=== PATIENT | female | born 1960 | race Caucasian/White ===

== ENCOUNTER 2017-06-07 15:43 | Observation (INO) | payer MEDICAID ==
[2017-06-07] MEDS ORDERED: oxyCODONE IR 5 MG TAB PO PRN (17:28)
[2017-06-07] MEDS ORDERED: ONDANSETRON DISINTEGRATING 4 MG TAB PO PRN (17:28)
[2017-06-07] MEDS ORDERED: PROMETHAZINE HCL 25 MG/ML INJ IVP PRN (17:28)
[2017-06-07] MEDS ORDERED: ACETAMINOPHEN 325 MG TAB PO PRN (17:28)
[2017-06-07] MEDS ORDERED: ONDANSETRON 4 MG/2 ML VIAL IVP PRN (17:28)
[2017-06-07] MEDS ORDERED: LORazepam 0.5 MG TAB PO PRN (17:28)
[2017-06-07] MEDS ORDERED: HYDROmorphone HCL/NS/PF 0.4 MG/2 ML SYR IVP PRN (17:28)
[2017-06-07] MEDS ORDERED: NS 1,000 ML IV SCH (17:30)
--- NOTE | 2017-06-07 18:35 | PDGENHP ---
History and Physical - Chief Complaint back pain - History of Present Illness 56 yo F with a PMH that includes RCC s/p nephrectomy and more recent metastatic breast cancer, widely metastatic to bone, presenting with BENNETT on CKD. Patient notes that she has generally felt poorly this week, she had recently started a new chemotherapy medicine after she had progression on the last round and thought that some of her feeling poorly was either due to the chemo or to the known tumor burden in her spine. She had a set of labs drawn that revealed her creatinine was much higher than her baseline on the and since then has had 2 saline infusions without improvement in her creatinine. An abd US was obtained showing mild to moderate hydronephrosis and due to this and her worsening renal function she was sent here as a direct admit. She has not had fever or chills, she has not noticed any change in her urine appearance or amount. She notes that her pain is generally well controlled on tylenol and she mainly has been struggling with mood and sleep issues. History Information - Allergies/Home Medication List Allergies/Adverse Reactions: Penicillins Allergy (Verified 09/01/14 15:21) Hives Sulfa (Sulfonamide Antibiotics) Allergy (Verified 09/01/14 15:21) Hives Home Medications: Clonazepam 06/05/13 [Last Taken Unknown] traZODONE 06/05/13 [Last Taken Unknown] I have personally reviewed and updated: family history, medical history, social history, surgical history - Past Medical History cancer (renal cell carcinoma, bilateral breast cancer--metastatic at diagnosis) , psychiatric history (anxiety/depression) - Surgical History Additional surgical history: nephrectomy. breast biopsy - Family History Positive for: non-pertinent - Social History Smoking Status: Former smoker Alcohol Use: Rarely Drug Use: None Review of Systems Review of Systems: ROS: 10pt was reviewed & negative except for what was stated in HPI & below Physical Exam Physical Exam: Temp Pulse Resp BP Pulse Ox 36.8 C 80 16 152/74 H 94 06/07/17 17:35 06/07/17 17:35 06/07/17 17:35 06/07/17 17:35 06/07/17 17:35 Constitutional: no apparent distress, chronically ill appearing Eyes: PERRL, anicteric sclera Ears, Nose, Mouth, Throat: moist mucous membranes, hearing normal Cardiovascular: regular rate and rhythym, no murmur, rub, or gallop, No edema Respiratory: no respiratory distress, no rales or rhonchi, clear to auscultation Gastrointestinal: normoactive bowel sounds, soft, non-tender abdomen Genitourinary: no bladder tenderness Skin: warm, normal color Musculoskeletal: full muscle strength Neurologic: AAOx3, No weakness, No numbness Psychiatric: interacting appropriately, not anxious, not encephalopathic Lab Data & Imaging Review Urine Color PALE YELLOW 06/07/17 17:43 Urine Appearance CLEAR 06/07/17 17:43 Urine pH 5.0 (5.0-7.5) 06/07/17 17:43 Ur Specific [place] 1.003 (1.002-1.030) 06/07/17 17:43 Urine Protein NEGATIVE (NEGATIVE) 06/07/17 17:43 Urine Ketones NEGATIVE (NEGATIVE) 06/07/17 17:43 Urine Blood 1+ (NEGATIVE) H 06/07/17 17:43 Urine Nitrate NEGATIVE (NEGATIVE) 06/07/17 17:43 Urine Bilirubin NEGATIVE (NEGATIVE) 06/07/17 17:43 Urine Urobilinogen NEGATIVE EU (0.2-1.0) 06/07/17 17:43 Ur Leukocyte Esterase NEGATIVE (NEGATIVE) 06/07/17 17:43 Urine RBC 1-3 /hpf (0-3) 06/07/17 17:43 Urine WBC 3-5 /hpf (0-3) H 06/07/17 17:43 Ur Epithelial Cells TRACE /lpf (NONE-1+) 06/07/17 17:43 Ur Culture Indicated? NOT INDICATED (NI) 06/07/17 17:43 Urine Glucose NEGATIVE (NEGATIVE) 06/07/17 17:43 Assessment & Plan Assessment: BENNETT (acute kidney injury) (Acute) 56 yo F with metastatic breast cancer as well as hx of RCC s/p nephrectomy presenting with bennett on ckd # bennett on ckd: in the setting of mild to moderate hydronephrosis on US that is new from prior likely 2/2 compression from fibroid. Discussed with IR and plan for perc neph tube placement either today or in am and f/u with urology after that for internal ureteral stent. Patient declining having IV in overnight and already had 1L NS today so will push fluids but no IV fluids overnight. Once perc neph tube is placed, patient likely can dc in am with close f/u. # metastatic breast cancer: widely metastatic to bone and progressing despite chemotherapy. Significant involvement of right breast and will ask wound care to evaluate in am. Continue to f/u with oncology as per routine. # RCC: s/p nephrectomy as above # observation status, suspect she will require < 48 hours stay for eval/mgmt of above Patient new to my care. Old records reviewed and summarized as above. Care plan reviewed with IR physician including plans for perc neph likely in am.
[2017-06-07] MEDS ORDERED: traZODone 100 MG TAB PO PRN (18:56)
[2017-06-07] MEDS ORDERED: fentaNYL 100 MCG/2 ML INJ ONE ×2 (19:07→19:22)
[2017-06-07] MEDS ORDERED: MIDAZOLAM 2 MG/2 ML VIAL ONE (19:07)
--- NOTE | 2017-06-07 19:30 | POSTOPPROG ---
Post Op Note Date of Operation: 06/07/17 Surgeon: Suyapa Grewal Anesthesia: IV Sedation (fentanyl and versed) Pre-op Diagnosis: RT kidney hydronephrosis Post-op Diagnosis: same Indication: single kidney with rising CR Procedure: RT double J stent placement Findings: moderate hydronephrosis. No obstruction identified. Inf/Abcess present in the surg proc area at time of surgery?: No Depth: Superfical (Skin SQ) EBL: Minimal Complications: None Drains: Other (8fr 22cm double J ureteral stent)
[2017-06-07] MEDS ORDERED: IOPAMIDOL (ISOVUE-300) 100 ML BTL ONE (19:31)
[2017-06-07] MEDS ORDERED: MIRTAZAPINE 30 MG TAB PO SCH (21:00)
[2017-06-07] MEDS ORDERED: clonazePAM 0.5 MG TAB PO SCH (21:00)
[2017-06-07] MEDS ORDERED: traZODone 100 MG TAB PO SCH (21:00)
[2017-06-07] MEDS: CAPECITABINE 500 MG TAB PO SCH (21:40)
[2017-06-07] MEDS: CAPECITABINE PO SCH (21:40)
[2017-06-07] MEDS: HYDROCODONE/APAP 5/325 TAB PO PRN (21:47)
[2017-06-07] MEDS: HYOSCYAMINE SULFATE 0.125 MG TAB PO PRN (23:03)
[2017-06-08] MEDS: HYOSCYAMINE SULFATE 0.125 MG TAB PO PRN ×3 (03:41→14:07)
[2017-06-08] MEDS: HYDROCODONE/APAP 5/325 TAB PO PRN ×2 (03:41→12:26)
[2017-06-08 05:16] LABS: PLATELET COUNT 122 10^3/uL (150-400)
[2017-06-08 05:25] LABS: INR 1.3 (0.83-1.16); PROTIME(PATIENT) 16.2 SEC (12.0-15.0)
[2017-06-08] MEDS: CAPECITABINE 500 MG TAB PO SCH (09:18)
[2017-06-08] MEDS: CAPECITABINE PO SCH (09:18)
[2017-06-08 12:03] VITALS: BP 131/75; PULSE 81; RESP 17; TEMP 98.1; O2SAT 89
--- NOTE | 2017-06-08 15:42 | GDS ---
[f rep st] DISCHARGE SUMMARY DISCHARGE DIAGNOSES: 1. Unilateral kidney with obstruction, status post ureteral stent. 2. Renal cell carcinoma, status post nephrectomy. 3. Metastatic breast cancer. 4. Acute on chronic kidney disease. 5. Acute blood loss anemia. HISTORY: The patient is a 56-year-old female with metastatic breast cancer, who was found to have ac km on chronic renal failure. She had an outpatient ultrasound that showed moderate hydronephrosis o f her remaining kidney. She was admitted to the hospital and put in a ureteral stent. Post procedure, she did have a drop in her H and H and got 2 units of blood transfused. Her post t ransfusion check was quite elevated, which makes me suspect that there may have been a little bit of lab error in her initial H and H draw this morning. Regardless, she is chronically anemic due to her metastatic breast cancer and chemotherapy, so she will probably benefit from this blood. She did have some mild transient hematur ia, but I do not think she had a significant bleed. A CT scan of the abdomen and pelvis was performe d to rule out retroperitoneal bleed and this was negative. The patient was very insistent on being d ischarged today and did not wish to stay in the hospital any longer. Although, my initial recommenda tion was that we observe for one more night, when her H and H did come back quite stable, I did feel comfortable discharging with close outpatient followup. She will need ongoing monitoring of her H an d H and renal function as an outpatient with Dr. Warren. DISCHARGE MEDICATIONS: Please see computer record for full detailed list. New medications: Hyoscya mine 0.125 mg p.o. q.4 hours as needed. ADDITIONAL DISCHARGE INSTRUCTIONS: CBC and chem-[address] Warren in 2-3 days. Patient was seen and examined by me on the day of discharge. /[id number]/MODL
--- NOTE | 2017-06-08 16:42 | ASMTCMCOM ---
CM Note CM Note Notes: Pt with hx of metastatic breast ca had ureteral placed and will DC today with no needs. Date Signed: 06/08/2017 04:41 PM Electronically Signed By:Di Patel LCSW
== END 2017-06-08 15:45 | disposition home or self-care (01) ==
LOC: F1N 16:45 → INTOOBSV 16:45
PROVIDERS: ADMIT Internal Medicine; ATTEND Internal Medicine
PROC: 30233N1 Transfusion of Nonautologous Red Blood Cells into Peripheral Vein, Percutaneous Approach (ICD-10-PCS; 2017-06-07)
PROC: 0T763DZ Dilation of Right Ureter with Intraluminal Device, Percutaneous Approach (ICD-10-PCS; principal; 2017-06-07 19:40)
DX: N17.9 Acute kidney failure, unspecified (principal); N13.30 Unspecified hydronephrosis; N18.9 Chronic kidney disease, unspecified; D62 Acute posthemorrhagic anemia; G47.9 Sleep disorder, unspecified; C50.919 Malignant neoplasm of unspecified site of unspecified female breast; C79.51 Secondary malignant neoplasm of bone; Z90.5 Acquired absence of kidney; Z87.891 Personal history of nicotine dependence; Z85.528 Personal history of other malignant neoplasm of kidney
CPT/HCPCS: 36430; 50694; 74176; 99152; 99153; C1729; C1769; G0378; P9016; J1170; J1644; J2250; J3010; J8520; Q9967

== ENCOUNTER → 2017-06-07 | Outpatient (CLI) | payer MEDICAID | LOC: FIMAGING 13:38 | PROVIDERS: ATTEND Internal Medicine Hematology & Oncology | DX: N13.30 Unspecified hydronephrosis (principal); Z85.528 Personal history of other malignant neoplasm of kidney; Z90.5 Acquired absence of kidney ==

== ENCOUNTER → 2017-07-10 | Outpatient (CLI) | payer MEDICAID ==
[~2017-07-10] MED LIST: GADOBUTROL 10 ML VIAL IVP ONE
== END ==
LOC: FIMAGING 13:33
PROVIDERS: ATTEND Internal Medicine Hematology & Oncology
DX: R51 Headache (principal); C50.919 Malignant neoplasm of unspecified site of unspecified female breast
CPT/HCPCS: A9585

== ENCOUNTER 2017-07-24 14:45 | Outpatient (CLI) | payer MEDICAID ==
[2017-07-24] MEDS ORDERED: ACETAMINOPHEN 325 MG TAB PO ONE (15:30)
[2017-07-24 16:12] VITALS: BP 113/57; PULSE 81; TEMP 99.5
== END 2017-07-24 16:00 | disposition home or self-care (01) ==
LOC: FOBOP 14:45
PROVIDERS: ATTEND Internal Medicine Hematology & Oncology
PROC: 30233R0 Transfusion of Autologous Platelets into Peripheral Vein, Percutaneous Approach (ICD-10-PCS; principal; 2017-07-24)
DX: C50.919 Malignant neoplasm of unspecified site of unspecified female breast (principal); D64.81 Anemia due to antineoplastic chemotherapy; C79.51 Secondary malignant neoplasm of bone; C79.2 Secondary malignant neoplasm of skin
CPT/HCPCS: 36430; P9035

== ENCOUNTER → 2017-07-28 | Outpatient (CLI) | payer MEDICAID ==
[~2017-07-28] MED LIST changes: +ACETAMINOPHEN 325 MG TAB PO ONE; -GADOBUTROL 10 ML VIAL IVP ONE
== END ==
LOC: FOBOP 11:22
PROVIDERS: ATTEND Internal Medicine Hematology & Oncology
PROC: 30233N1 Transfusion of Nonautologous Red Blood Cells into Peripheral Vein, Percutaneous Approach (ICD-10-PCS; principal; 2017-07-28)
DX: C50.919 Malignant neoplasm of unspecified site of unspecified female breast (principal); D64.81 Anemia due to antineoplastic chemotherapy
CPT/HCPCS: 36430; P9016